=== PATIENT | male | born 2005 | race African-American/Black ===

== ENCOUNTER 2023-11-12 15:32 | Emergency (ER) | payer SELFPAY ==
[2023-11-12 15:44] VITALS: BP 120/72; PULSE 89; RESP 20; TEMP 98.9; BMI 19.2
== END 2023-11-12 16:15 | disposition home or self-care (01) ==
LOC: JERFT 15:32
DX: S71.102A Unspecified open wound, left thigh, initial encounter (principal); S80.212A Abrasion, left knee, initial encounter; W20.8XXA Other cause of strike by thrown, projected or falling object, initial encounter; W25.XXXA Contact with sharp glass, initial encounter
CPT/HCPCS: 99282-25